=== PATIENT | male | born 1980 | race African-American/Black ===

== ENCOUNTER 2018-03-09 16:53 | Emergency (ER) | payer OTHER ==
[~2018-03-09] VITALS: Ht 175.3 cm; Wt 74.8 kg
--- NOTE | 2018-03-09 17:22 | PHYS DOC ---
Past Medical History Past Medical History: No Pertinent History Past Surgical History: No Surgical History Alcohol Use: None Drug Use: None Adult General Chief Complaint Chief Complaint: ABDOMINAL PAIN HPI HPI Patient is a 38 year old male with no significant medical history who presents today complaining of 10 out of 10 left-sided abdominal pain that began today. Patient denies any nausea vomiting. He states he had a bloody stool. No denies any fever. Patient states he takes testosterone. Review of Systems Review of Systems Constitutional: Denies fever or chills [] Eyes: Denies change in visual acuity, redness, or eye pain [] HENT: Denies nasal congestion or sore throat [] Respiratory: Denies cough or shortness of breath [] Cardiovascular: No additional information not addressed in HPI [] GI: Reports Left-sided abdominal pain, denies diarrhea, bloody stools, nausea or vomiting. : Denies dysuria or hematuria [] Musculoskeletal: Denies back pain or joint pain [] Integument: Denies rash or skin lesions [] Neurologic: Denies headache, focal weakness or sensory changes [] All other systems were reviewed and found to be within normal limits, except as documented in this note. Current Medications Current Medications Current Medications Medications (Trade) Dose Ordered Sig/Trace Start Time Stop Time Status Last Admin Dose Admin Famotidine (Pepcid Vial) 20 mg 1X ONCE 03/09/18 17:30 03/09/18 17:31 DC 03/09/18 17:38 20 MG Info (CONTRAST GIVEN -- Rx MONITORING) 1 each PRN DAILY PRN 03/09/18 17:45 03/09/18 19:58 DC Iohexol (Omnipaque 300 Mg/ml) 75 ml 1X ONCE 03/09/18 17:30 03/09/18 17:32 DC 03/09/18 18:19 75 ML Morphine Sulfate (Morphine Sulfate) 4 mg 1X ONCE 03/09/18 17:30 03/09/18 17:31 DC 03/09/18 17:37 4 MG Ondansetron HCl (Zofran) 4 mg 1X ONCE 03/09/18 19:15 03/09/18 19:16 DC 03/09/18 19:14 4 MG Sodium Chloride 1,000 ml @ 1,000 mls/hr 1X ONCE 03/09/18 17:30 12/15/18 18:29 DC 03/09/18 17:38 1,000 MLS/HR Tamsulosin HCl (Flomax) 0.4 mg 1X ONCE 03/09/18 19:00 03/09/18 19:02 DC 03/09/18 19:14 0.4 MG Allergies Allergies Allergies Coded Allergies Type Severity Reaction Last Updated Verified No Known Drug Allergies 01/27/16 No Physical Exam Physical Exam Constitutional: Well developed, well nourished, no acute distress, non-toxic appearance. [] HENT: Normocephalic, atraumatic, bilateral external ears normal, oropharynx moist, no oral exudates, nose normal. [] Eyes: PERRLA, EOMI, conjunctiva normal, no discharge. [] Neck: Normal range of motion, no tenderness, supple, no stridor. [] Cardiovascular:Heart rate regular rhythm, no murmur [] Lungs & Thorax: Bilateral breath sounds clear to auscultation [] Abdomen: Flat abdomen. Bowel sounds normal, soft, no right upper quadrant or right lower quadrant tenderness, diffuse tenderness throughout the left side of the abdomen, no guarding, no rebound tenderness, no masses, no pulsatile masses. [] Skin: Warm, dry, no erythema, no rash. [] Back: No tenderness, no CVA tenderness. [] Extremities: No tenderness, no cyanosis, no clubbing, ROM intact, no edema. [] Neurologic: Alert and oriented X 3, normal motor function, normal sensory function, no focal deficits noted. [] Psychologic: Affect normal, judgement normal, mood normal. [] Current Patient Data Vital Signs Vital Signs Date Time Temp Pulse Resp B/P (MAP) Pulse Ox O2 Delivery O2 Flow Rate FiO2 03/09/18 19:45 70 125/63 (83) 99 Room Air 03/09/18 17:45 97.7 20 97.7 Lab Values Laboratory Tests Test 03/09/18 17:16 03/09/18 17:40 Urine Collection Type Unknown Urine Color Yellow Urine Clarity Turbid Urine pH 8.0 Urine Specific [place] 1.025 Urine Protein Negative mg/dL (NEG-TRACE) Urine Glucose (UA) Negative mg/dL (NEG) Urine Ketones (Stick) Negative mg/dL (NEG) Urine Blood Moderate (NEG) Urine Nitrite Negative (NEG) Urine Bilirubin Negative (NEG) Urine Urobilinogen Dipstick 0.2 mg/dL (0.2 mg/dL) Urine Leukocyte Esterase Negative (NEG) Urine RBC 6-10 /HPF (0-2) Urine WBC 0 /HPF (0-4) Urine Squamous Epithelial Cells Few /LPF Urine Amorphous Sediment Present /HPF Urine Bacteria 0 /HPF (0-FEW) White Blood Count 9.4 x10^3/uL (4.0-11.0) Red Blood Count 4.71 x10^6/uL (4.30-5.70) Hemoglobin 14.9 g/dL (13.0-17.5) Hematocrit 42.8 % (39.0-53.0) Mean Corpuscular Volume 91 fL (79-100) Mean Corpuscular Hemoglobin 32 pg (25-35) Mean Corpuscular Hemoglobin Concent 35 g/dL (31-37) Red Cell Distribution Width 13.2 % (11.5-14.5) Platelet Count 180 x10^3/uL (140-400) Neutrophils (%) (Auto) 57 % (31-73) Lymphocytes (%) (Auto) 30 % (24-48) Monocytes (%) (Auto) 10 % (0-9) H Eosinophils (%) (Auto) 2 % (0-3) Basophils (%) (Auto) 1 % (0-3) Neutrophils # (Auto) 5.4 x10^3uL (1.8-7.7) Lymphocytes # (Auto) 2.8 x10^3/uL (1.0-4.8) Monocytes # (Auto) 1.0 x10^3/uL (0.0-1.1) Eosinophils # (Auto) 0.2 x10^3/uL (0.0-0.7) Basophils # (Auto) 0.1 x10^3/uL (0.0-0.2) Sodium Level 143 mmol/L (136-145) Potassium Level 3.3 mmol/L (3.5-5.1) L Chloride Level 103 mmol/L (98-107) Carbon Dioxide Level 29 mmol/L (21-32) Anion Gap 11 (6-14) Blood Urea Nitrogen 16 mg/dL (8-26) Creatinine 1.5 mg/dL (0.7-1.3) H Estimated GFR (Cockcroft-Gault) 63.4 BUN/Creatinine Ratio 11 (6-20) Glucose Level 111 mg/dL (70-99) H Calcium Level 10.0 mg/dL (8.5-10.1) Total Bilirubin 0.6 mg/dL (0.2-1.0) Aspartate Amino Transferase (AST) 22 U/L (15-37) Alanine Aminotransferase (ALT) 20 U/L (16-63) Alkaline Phosphatase 58 U/L (46-116) Total Protein 8.3 g/dL (6.4-8.2) H Albumin 4.7 g/dL (3.4-5.0) Albumin/Globulin Ratio 1.3 (1.0-1.7) Lipase 106 U/L (73-393) Ethyl Alcohol Level < 10 mg/dL (0-10) Laboratory Tests 03/09/18 17:40 Laboratory Tests 03/09/18 17:40 EKG EKG [] Radiology/Procedures Radiology/Procedures []PROCEDURE: CT ABD PELV W/ IV CONTRST ONLY PQRS Compliance Statement: One or more of the following individualized dose reduction techniques were utilized for this examination: 1. Automated exposure control 2. Adjustment of the mA and/or kV according to patient size 3. Use of iterative reconstruction technique CT abdomen/pelvis with contrast 03/09/2018 5:17 PM INDICATION: Abdominal pain since this morning. COMPARISON: None available TECHNIQUE: Multiple axial CT images of the abdomen and pelvis were obtained after the intravenous administration of 75 mL Omnipaque 300. Coronal and sagittal reformats are provided. FINDINGS: Lung bases are clear. Heart size is within normal limits. Evaluation of solid abdominal viscera is limited by lack of intravenous contrast. No suspicious hepatic lesions are identified. Spleen is nonenlarged. Adrenal glands are normal in appearance. Pancreas is grossly within normal limits. Gallbladder is present without adjacent inflammation. The abdominal aorta is normal in course and caliber. There are no pathologically enlarged lymph nodes in the abdomen and pelvis. There is no abdominal free fluid. There is no free intraperitoneal air. There is delayed enhancement of the left kidney. There is a 3 mm calculus at the left ureteropelvic junction. No significant hydronephrosis is identified. No suspicious renal masses are identified. Stomach is distended with fluid. No suspicious osseous abnormality is identified. Urinary bladder is within normal limits given degree of distention. No suspicious pelvic mass is identified. IMPRESSION: 1. There is a 3 mm calculus at the left ureterovesicular junction. There is delayed left nephrogram. Correlate with urinalysis. Electronically signed by: Iggy Ramirez MD (03/09/2018 6:52 PM) [facility] DICTATED and SIGNED BY: IGGY RAMIREZ MD DATE: 03/09/18 1840 Course & Med Decision Making Course & Med Decision Making Pertinent Labs and Imaging studies reviewed. (See chart for details) This is a 38-year-old male patient presented to the ED today with complaints of left-sided abdominal pain that began today. CBC with a normal WBC, CMP with creatinine of 1.5 BUN is normal. Urine analysis is noted for moderate amount of blood, no infection. CT of the abdomen and pelvic was noted for a 3 mm calculus at the left UVJ with delayed left nephrogram. Correlate with the urine analysis. Vitals are stable with normal temperature. Patient was given morphine Flomax IV fluids and Zofran. He states his pain is completely relieved. Is requesting to be discharged despite being offered admission. Patient was discharged to home. Instructed to follow-up with the provided urologist in the next 3 days. Discharged on Flomax, Zofran and hydrocodone as needed for severe pain. Dragon Disclaimer Dragon Disclaimer This electronic medical record was generated, in whole or in part, using a voice recognition dictation system. Departure Departure Impression: Primary Impression: Kidney stone on left side Disposition: HOME, SELF-CARE Condition: STABLE Referrals: NO PCP (PCP) GIULIANO GARCIA MD Contact his office on Sunday and set up a follow-up appointment Patient Instructions: Kidney Stones Additional Instructions: You were evaluated in the emergency room and noted to have a kidney stone. We' ll put you on Flomax for a couple days. We also put you on pain medications and nausea medications, take them as prescribed. Please contact the provided urologist on Sunday and follow-up. Please come to the ED at any point symptoms worsen. Scripts Hydrocodone/Apap 5-325 (NORCO 5-325 TABLET) 1 Each Tablet 1 TAB PO Q4-6HRS PRN for PAIN, #20 TAB Prov: MUTUNGA,TERRY PRICING INTERN 03/09/18 Ondansetron (ONDANSETRON ODT) 4 Mg Tab.rapdis 1 TAB PO PRN Q6-8HRS, #16 TAB Prov: TERRY DIAZ PRICING INTERN 03/09/18 Tamsulosin Hcl (FLOMAX) 0.4 Mg Cap.er.24h 1 CAP PO DAILY, #7 CAP 0 Refills Prov: KATIOctaviaTERRY PRICING INTERN 03/09/18 Attending Signature Attending Signature I have reviewed the PA/DOG TRACK KENNEL MANAGER's note and plan of care. I was available for consultation as needed during the patient's visit in the emergency department. I agree with the clinical impression, plan, and disposition. TERRY DIAZ APRN Mar 09, 2018 17:22 ANNALISE ALEJANDRO DO Mar 09, 2018 23:33
[2018-03-09 17:23] LABS: BILIRUBIN,URINE NEGATIVE (NEG); CLARITY,URINE TURBID; COLOR,URINE YELLOW; NITRITE,URINE NEGATIVE (NEG); PROTEIN,URINE NEGATIVE (NEG-TRACE); UROBILINOGEN,URINE 0.2 mg/dL (0.2 mg/dL)
[2018-03-09] MEDS ORDERED: FAMOTIDINE 20 MG/2 ML VIAL IVP ONE (17:30)
[2018-03-09] MEDS ORDERED: MORPHINE SULFATE 4 MG/ML VIAL. IV ONE (17:30)
[2018-03-09] MEDS ORDERED: IOHEXOL 300 MG/ML 100ML VIAL. IV ONE (17:30)
[2018-03-09] MEDS ORDERED: ONDANSETRON PF 4 MG/2 ML VIAL. IV ONE ×2 (17:30→19:15)
[2018-03-09] MEDS ORDERED: IV NORMAL SALINE 1000ML BAG 1,000 ML IV ONE (17:30)
[2018-03-09 17:35] LABS: BACTERIA,URINE 0 /HPF (0-FEW); SQUAMOUS EPITHELIAL CELL,UR FEW /LPF; WBC,URINE 0 /HPF (0-4)
[2018-03-09 17:36] LABS: AMORPHOUS SEDIMENT,UR PRESENT /HPF
[2018-03-09] MEDS ORDERED: CONTRAST GIVEN. MC PRN (17:45)
[2018-03-09 17:47] LABS: BASO # 0.1 x10^3/uL (0.0-0.2); BASO % 1 % (0-3); EOS # 0.2 x10^3/uL (0.0-0.7); EOS % 2 % (0-3); HEMATOCRIT 42.8 % (39.0-53.0); HEMOGLOBIN 14.9 g/dL (13.0-17.5); LYMPH # 2.8 x10^3/uL (1.0-4.8); LYMPH % 30 % (24-48); MEAN CORPUSCULAR HEMOGLOBIN 32 pg (25-35); MEAN CORPUSCULAR HGB CONC 35 g/dL (31-37); MEAN CORPUSCULAR VOLUME 91 fL (79-100); MONO % 10 % (0-9); NEUT # 5.4 x10^3uL (1.8-7.7); NEUT % 57 % (31-73); PLATELET COUNT 180 x10^3/uL (140-400); RED BLOOD COUNT 4.71 x10^6/uL (4.30-5.70); RED CELL DISTRIBUTION WIDTH 13.2 % (11.5-14.5); WHITE BLOOD COUNT 9.4 x10^3/uL (4.0-11.0)
[2018-03-09 17:55] LABS: CREATININE 1.5 mg/dL (0.7-1.3); GFR 63.4; POTASSIUM 3.3 mmol/L (3.5-5.1)
[2018-03-09 18:00] LABS: ALBUMIN 4.7 g/dL (3.4-5.0); ALBUMIN/GLOBULIN RATIO 1.3 (1.0-1.7); TOTAL BILIRUBIN 0.6 mg/dL (0.2-1.0); TOTAL PROTEIN 8.3 g/dL (6.4-8.2)
--- NOTE | 2018-03-09 18:56 | RAD ---
PQRS Compliance Statement: One or more of the following individualized dose reduction techniques were utilized for this examination: 1. Automated exposure control 2. Adjustment of the mA and/or kV according to patient size 3. Use of iterative reconstruction technique CT abdomen/pelvis with contrast 03/09/2018 5:17 PM INDICATION: Abdominal pain since this morning. COMPARISON: None available TECHNIQUE: Multiple axial CT images of the abdomen and pelvis were obtained after the intravenous administration of 75 mL Omnipaque 300. Coronal and sagittal reformats are provided. FINDINGS: Lung bases are clear. Heart size is within normal limits. Evaluation of solid abdominal viscera is limited by lack of intravenous contrast. No suspicious hepatic lesions are identified. Spleen is nonenlarged. Adrenal glands are normal in appearance. Pancreas is grossly within normal limits. Gallbladder is present without adjacent inflammation. The abdominal aorta is normal in course and caliber. There are no pathologically enlarged lymph nodes in the abdomen and pelvis. There is no abdominal free fluid. There is no free intraperitoneal air. There is delayed enhancement of the left kidney. There is a 3 mm calculus at the left ureteropelvic junction. No significant hydronephrosis is identified. No suspicious renal masses are identified. Stomach is distended with fluid. No suspicious osseous abnormality is identified. Urinary bladder is within normal limits given degree of distention. No suspicious pelvic mass is identified. IMPRESSION: 1. There is a 3 mm calculus at the left ureterovesicular junction. There is delayed left nephrogram. Correlate with urinalysis. Electronically signed by: Kendra Dong MD (03/09/2018 6:52 PM) [facility]
[2018-03-09] MEDS ORDERED: TAMSULOSIN 0.4 MG CAP.ER.24H. PO ONE (19:00)
[2018-03-09] MEDS ORDERED: HYDR-3164 PO (19:30)
[2018-03-09] MEDS ORDERED: TAMS0.4C97 PO (19:30)
[2018-03-09] MEDS ORDERED: ONDA4TAB12 PO (19:30)
[2018-03-09 19:45] VITALS: BP 125/63
== END 2018-03-09 19:51 | disposition home or self-care (01) ==
LOC: ER 16:53
DX: N20.2 Calculus of kidney with calculus of ureter (principal); R19.8 Other specified symptoms and signs involving the digestive system and abdomen
CPT/HCPCS: 36415; 74177; 80053; 80307; 81001; 83690; 85025; 96374; 96375; 96376; 99284; G0480; J2270; J2405; J3490; J7030; Q9967